=== PATIENT | female | born 1955 | race Caucasian/White ===

== ENCOUNTER 2019-12-23 05:43 | Outpatient (RCR) | payer MEDICARE, OTHER ==
[~2019-12-23] VITALS: Ht 160 cm; Wt 113.6 kg
[2019-12-23] MEDS ORDERED: HYDR25TA4 PO (12:18)
[2019-12-23] MEDS ORDERED: LOSA100T57 PO (12:18)
[2019-12-23] MEDS ORDERED: VITA1CAP PO (12:18)
== END 2019-12-23 12:43 | disposition home or self-care (01) ==
LOC: PREOP 05:43
PROVIDERS: ATTEND Otolaryngology Otolaryngology/Facial Plastic Surgery
DX: Z01.818 Encounter for other preprocedural examination (principal)

== ENCOUNTER 2019-12-31 06:34 | Day surgery (SDC) | payer MEDICARE, OTHER ==
[2019-12-31] VITALS (11 sets, daily range): BP systolic 134–184; BP diastolic 71–108
[~2019-12-31] VITALS: Ht 160.8 cm; Wt 123.8 kg
[~2019-12-31 06:34] MED LIST: HYDR25TA4 PO; LOSA100T57 PO; VITA1CAP PO
[2019-12-31] MEDS: LACTATED RINGERS 1,000 ML IV PRN ×2 (07:09→09:00)
[2019-12-31] MEDS ORDERED: CRAN1CAP5 PO (07:41)
[2019-12-31] MEDS ORDERED: fentaNYL INJECTION 100 MCG/2 ML AMP ONE (08:02)
[2019-12-31] MEDS ORDERED: MIDAZOLAM 2 MG/2 ML (VERSED) VIAL ONE ×2 (08:02→08:42)
[2019-12-31] MEDS ORDERED: MUPIROCIN 2% OINT 22 GM (BACTROBAN) TUBE ONE (08:04)
[2019-12-31] MEDS ORDERED: LIDOCAINE/EPI 1%-1:100,000 (XYLOCAINE) 20ML ONE (08:04)
[2019-12-31] MEDS ORDERED: ONDANSETRON 4 MG/2 ML (SDV) Z0FRAN ONE (08:07)
[2019-12-31] MEDS ORDERED: proPOfol 200 MG/20 ML (DIPRIVAN) VIAL IV ONE (08:07)
[2019-12-31] MEDS ORDERED: LIDOCAINE PF 2% 5 ML (XYLOCAINE) VIAL ONE (08:08)
[2019-12-31] MEDS ORDERED: SEVOFLURANE (ULTANE) 15 ML INHAL SOLN ONE ×3 (08:15→10:00)
--- NOTE | 2019-12-31 09:48 | Progress Note-Pre Operative ---
Pre-Operative Progress Note H&P Reviewed The H&P was reviewed, patient examined and no changes noted. Date Seen by Provider: Dec 31, 2019 Time Seen by Provider: 08:00 Date H&P Reviewed: Dec 31, 2019 Time H&P Reviewed: 08:00 Pre-Operative Diagnosis: MUltiple FAcial Lesions ROMÁN AL MD Dec 31, 2019 09:48
--- NOTE | 2019-12-31 09:50 | Progress Note-Post Operative ---
Post-Operative Progess Note Surgeon (s)/[employer] (s) Surgeon ROMÁN AL MD [employer] n/a Pre-Operative Diagnosis MUltiple FAcial Lesions Post-Operative Diagnosis same Post-Op Procedure Note Date of Procedure: Dec 31, 2019 Name of Procedure Performed: Excision of Right Forehead Lesion with INtermediate Repair, Excision of Left Marion LEsion with INtermediate Repair, Excision of Left Nasal Lesion with Intermediate Repair Description & Findings Description and Findings: n/a Anesthesia Type lma Estimated Blood Loss minimal Packing none. Specimen(s) collected/removed MUltiple Facial Lesions with frozen sections ROMÁN AL MD Dec 31, 2019 09:50
[2019-12-31] MEDS ORDERED: HYDROcodone/APAP 5 MG/325 MG (LORTAB) TAB PO PRN (10:00)
[2019-12-31] MEDS ORDERED: ACETAMINOPHEN 325 MG TABLET PO PRN (10:00)
[2019-12-31] MEDS ORDERED: BSS 15 ML ONE (10:01)
[2019-12-31] MEDS ORDERED: morphine INJ 10 MG/ML 1ML (SYR OR VIAL) IVP ONE (10:30)
[2019-12-31] MEDS ORDERED: ONDANSETRON 4 MG/2 ML (SDV) Z0FRAN IVP PRN (10:30)
[2019-12-31] MEDS ORDERED: ACHD5005 PO (11:24)
[2019-12-31] MEDS ORDERED: CEPH-507 PO (11:24)
--- NOTE | 2019-12-31 13:36 | Anesthesia-General Post-Op ---
General Patient Condition Mental Status/LOC: Same as Preop Cardiovascular: Satisfactory Nausea/Vomiting: Absent Respiratory: Satisfactory Pain: Controlled Complications: Absent Post Op Complications Complications None Follow Up Care/Instructions Patient Instructions None needed. Anesthesia/Patient Condition Patient Condition Patient is doing well, no complaints, stable vital signs, no apparent adverse anesthesia problems. No complications reported per nursing. DAWNA LAO CRNA Dec 31, 2019 13:36
== END 2019-12-31 12:35 | disposition home or self-care (01) ==
LOC: SDC 06:34
PROVIDERS: ATTEND Otolaryngology Otolaryngology/Facial Plastic Surgery
DX: C44.319 Basal cell carcinoma of skin of other parts of face (principal); C44.311 Basal cell carcinoma of skin of nose; I10 Essential (primary) hypertension; J45.909 Unspecified asthma, uncomplicated; F41.9 Anxiety disorder, unspecified; E66.01 Morbid (severe) obesity due to excess calories; Z68.42 Body mass index [BMI] 45.0-49.9, adult; Z79.899 Other long term (current) drug therapy; Z88.0 Allergy status to penicillin; Z88.2 Allergy status to sulfonamides; Z88.1 Allergy status to other antibiotic agents
CPT/HCPCS: 87081; 88305; 88331